=== PATIENT | male | born 1985 | race Caucasian/White ===

== ENCOUNTER 2020-06-16 19:36 | Emergency (ER) | payer SELFPAY ==
[~2020-06-16] VITALS: Ht 175.3 cm; Wt 76.7 kg
[2020-06-16 20:11] VITALS: Ht 175.3 cm; Wt 76.7 kg
[2020-06-16 21:50] VITALS: BP 119/77
[2020-06-18 18:28] LABS: RAPID PLASMA REAGIN Non Reactive (Non Reactive)
== END 2020-06-16 21:50 | disposition home or self-care (01) ==
LOC: ED 19:36
PROVIDERS: Emergency Medicine
DX: R30.0 Dysuria (principal)
CPT/HCPCS: 87491; 87591